=== PATIENT | female | born 1975 | race American Indian/Alaskan Native ===

== ENCOUNTER 2017-09-01 16:50 | Inpatient (IN) ==
[2017-09-01] MEDS ORDERED: IOPAMIDOL 100 ML BOTTLE IV ONE (16:51)
[2017-09-01] MEDS ORDERED: 0.9 % SODIUM CHLORIDE 1,000 ML IV ONE (16:57)
[2017-09-01 17:54] LABS: Basophils # (Auto) 0 K/mcL (0.0-0.3); Basophils % (Auto) 0.2 % (0.0-2.0); Eosinophils # (Auto) 0 K/mcL (0.0-0.7); Eosinophils % (Auto) 0.3 % (0.0-7.0); Granulocytes % (Auto) 83.5 % (38.0-78.0); Lymphocytes # (Auto) 1.4 K/mcL (1.5-4.8); Lymphocytes % (Auto) 9.4 % (15.5-49.0); Mean Cell Volume 89.2 fL (80.0-100.0); Mean Corpuscular HGB Conc 33.5 g/dL (31.0-36.0); Mean Corpuscular Hemoglobin 29.9 pg (26.0-34.0); Monocytes % (Auto) 6.6 % (1.0-12.0); Platelet Count 205 K/mcL (140-440); RBC 4.88 M/mcL (4.00-5.20)
[2017-09-01 18:06] LABS: ALT/SGPT 20 U/l (0-40); Albumin 4.5 gm/dL (3.2-5.2); Albumin/Globulin Ratio 1.3 (1.0-2.3); Alkaline Phosphatase 76 U/L (39-117); Blood Urea Nitrogen 12 mg/dl (6-20); C-Reactive Protein 15.9 mg/dl (0.0-0.8)
--- NOTE | 2017-09-01 19:13 | Emergency Department Note ---
Abdominal Pain HPI - General Chief Complaint: Abdominal Pain Stated Complaint: Abd/back pain Time Seen by Provider: 09/01/17 16:56 Source: patient Mode of arrival: ambulatory Limitations: no limitations - History of Present Illness HPI Narrative: The patient is a pleasant 42 year old here today for evaluation of LLQ pain. States that for the pas week not feeling well with chills, sore throat and a productive cough. Two days ago developed left lower back pain that subsided but then today she had acute LLQ pain. Went to the [facility] care who documented a temp of 100.6F and reported that he patient is acutely tender - they sent her here for further work up/evaluation. She reports a history of hypertension but is otherwise healthy. Endorsing abdominal pain. MD Complaint: abdominal pain Onset (ago): day(s) (2) Location: LLQ Severity: severe Severity scale (1-10): 10 Quality: stabbing Radiation: L flank, back Associated symptoms: Reports: chills - Related Data Home Medications Medication Instructions Recorded Confirmed No Known Home Meds [No Known Home 09/01/17 09/01/17 Meds] Allergies Allergy/AdvReac Type Severity Reaction Status Date / Time No Known Drug Allergies Allergy Verified 09/01/17 16:51 Review of Systems All systems ED: reviewed and negative except as stated. Abdominal Pain PMH - Past Medical History Attestation: Yes: The following information was validated with the patient. Medical history: Reports: hypertension - Social History Smoking status: Never smoker Physical Exam Limitations: no limitations General appearance: alert, in distress (appears to be in pain) Head: atraumatic, normocephalic Eye: Present: normal appearance ENT: normal exam Chest: Present: normal inspection Respiratory: Present: normal lung sounds bilaterally Cardiovascular: Present: regular rate, normal rhythm Abdominal: Present: soft, tenderness, guarding Abdominal tenderness: Present: LUQ (back), LLQ Extremities: Present: normal inspection Back: Present: normal inspection Neurological: Present: alert, oriented X3 Psychiatric: Present: normal affect, normal mood Skin: Present: warm, dry Course Vital Signs Temperature 98.2 F 09/01/17 16:51 Pulse Rate 87 09/01/17 16:51 Respiratory Rate 16 09/01/17 16:51 Blood Pressure 189/104 09/01/17 16:51 Pulse Oximetry (%) 98 09/01/17 16:51 Temperature 98.2 F 09/01/17 16:51 Pulse Rate 72 09/01/17 19:47 Respiratory Rate 16 09/01/17 16:51 Blood Pressure 168/68 09/01/17 19:47 Pulse Oximetry (%) 97 09/01/17 19:47 Abdominal Pain - MDM Narrative Medical decision making narrative: Patient presents with a 2 day history of left lower quadrant pain. Lab work was obtained which shows a WBC of 14, CRP of [address] abdomen/pelvis demonstrating a perforated diverticulitis of the mid desending color with a 10 cm length tract of fluid and air extending. Surgery was called to emergently evaluate. Dr. Marcus evaluated patient and decided to admit with IV antibiotics rather than go to surgery. He is assuming care of the patient. - Lab Data Lab results reviewed: Yes I reviewed the patient's lab results. Result diagrams: 09/01/17 17:14 09/01/17 17:14 Lab Results 09/01/17 09/01/17 Range/Units 17:14 17:14 WBC 14.4 H (4.5-11.0) K/mcL RBC 4.88 (4.00-5.20) M/mcL Hgb 14.6 (12.0-15.0) g/dL Hct 43.5 (36.0-48.0) % MCV 89.2 (80.0-100.0) fL MCH 29.9 (26.0-34.0) pg MCHC 33.5 (31.0-36.0) g/dL RDW 14.0 (11.5-14.5) % Plt Count 205 (140-440) K/mcL MPV 9.1 (7.4-10.4) fL Gran % 83.5 H (38.0-78.0) % Lymph % (Auto) 9.4 L (15.5-49.0) % Rusk % (Auto) 6.6 (1.0-12.0) % Eos % (Auto) 0.3 (0.0-7.0) % Baso % (Auto) 0.2 (0.0-2.0) % Gran # 12.1 H (1.8-8.0) K/mcL Lymph # (Auto) 1.4 L (1.5-4.8) K/mcL Rusk # (Auto) 1.0 H (0.1-0.9) K/mcL Eos # (Auto) 0 (0.0-0.7) K/mcL Baso # (Auto) 0 (0.0-0.3) K/mcL Sodium 134 (133-145) mmol/L Potassium 3.9 (3.3-5.1) mmol/L Chloride 94 L (96-108) mmol/L Carbon Dioxide 26 (22-30) mmol/L Anion Gap 14.0 (8-16) BUN 12 (6-20) mg/dl Creatinine 0.7 (0.6-1.1) mg/dl GFR Calculation 107 Glucose 107 H (70-105) mg/dL Calcium 9.1 (8.6-10.4) mg/dl Total Bilirubin 0.9 (0.0-1.0) mg/dL AST 21 (0-37) U/l ALT 20 (0-40) U/l Alkaline Phosphatase 76 (39-117) U/L C-Reactive Protein 15.9 H (0.0-0.8) mg/dl Total Protein 8.1 (5.9-8.4) gm/dL Albumin 4.5 (3.2-5.2) gm/dL Globulin 3.6 (2.2-3.7) gm/dL Albumin/Globulin Ratio 1.3 (1.0-2.3) Disposition Pt seen by DINKEY BRAKEMAN/PA only: No Clinical Impression: Diverticulitis of colon with perforation Disposition: Xfer As Inpt ([facility]) Referrals: No,PCP [Primary Care Provider] -
[2017-09-01] MEDS ORDERED: ONDANSETRON 4 MG/2 ML VIAL IV PRN (20:17)
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
[2017-09-01] MEDS: DEXTROSE 5%-LR W/20MEQ KCL 1,000 ML IV SCH (22:00)
[2017-09-01] MEDS: 0.9 % SODIUM CHLORIDE 10 ML SYRINGE IV SCH (23:38)
[2017-09-01] MEDS: HEPARIN 5,000 UNIT/ML VIAL SQ SCH (23:40)
[2017-09-01] MEDS: PIPERACILLIN SODIUM/TAZOBACTAM 3.375 GM in DEXTROSE 5% IN WATER 50 ML IV SCH (23:41)
[2017-09-02] MEDS: ACETAMINOPHEN 325 MG TABLET PO PRN ×2 (00:01→18:47)
[2017-09-02] MEDS: PIPERACILLIN SODIUM/TAZOBACTAM 3.375 GM in DEXTROSE 5% IN WATER 50 ML IV SCH ×4 (03:59→21:34)
[2017-09-02] MEDS: DEXTROSE 5%-LR W/20MEQ KCL 1,000 ML IV SCH ×3 (05:25→20:01)
[2017-09-02 05:49] LABS: Mean Cell Volume 89.4 fL (80.0-100.0); Mean Corpuscular HGB Conc 33.9 g/dL (31.0-36.0); Mean Corpuscular Hemoglobin 30.3 pg (26.0-34.0); Platelet Count 176 K/mcL (140-440); RBC 4.38 M/mcL (4.00-5.20)
[2017-09-02] MEDS: 0.9 % SODIUM CHLORIDE 10 ML SYRINGE IV SCH ×4 (06:01→22:16)
[2017-09-02 06:09] LABS: Blood Urea Nitrogen 7 mg/dl (6-20)
[2017-09-02 06:57] LABS: Band Neutrophils % 23 % (0-10); Eosinophils % (Manual) 1 % (0-7); Lymphocytes % 10 % (15-49); Monocytes % (Manual) 4 % (1-12); Platelet Estimate NORMAL (NORMAL); RBC Morphology NORMAL (NORMAL); Segmented Neutrophils % 57 % (38-78)
[2017-09-02] MEDS: PANTOPRAZOLE 40 MG TABLET PO SCH (07:17)
--- NOTE | 2017-09-02 08:10 | Cat Scan Report ---
CLINICAL INFORMATION: Left lower quadrant pain COMPARISON: None. TECHNIQUE: Following enteric contrast, 80 cc of Isovue-300 were injected intravenously, and 60 seconds later, 0.625 mm helical slices were obtained from the mid heart through the subtrochanteric regions. Following reconstruction, 2.5 mm sagittal, coronal and axial reformatted images were processed and reviewed at bone, lung and soft tissue windows. Five minutes later, 0.625 mm helical slices were obtained from the mid heart through the kidneys and viewed at soft tissue windows.The exam was performed using radiation dose optimization techniques including, but not limited to, automated exposure control, adjustment of the mA and/or kV according to patient size and use of iterative reconstruction technique. FINDINGS: Lung bases show no abnormality - no effusion. Visualized heart is normal. Images through the abdomen show the gallbladder and bile ducts, liver, both kidneys, adrenal glands, spleen, pancreas and aorta, including aortic branches, are normal in size, configuration and attenuation without focal lesion. Images through the pelvis show uterus is anteflexed and normal in size - 7.2 x 2.9 cm. Both ovaries urinary bladder unremarkable. There is diverticulitis in a 7 cm segment of the mid descending colon. In this region, there is mild wall thickening of the colon including inflammatory diverticuli with moderate phlegmon in the pericolonic fat. In addition, there is extracolonic gas extensively throughout the left retroperitoneum including the left pericolonic region with dissection superiorly and medially along the anterior pararenal space and through Gerota's fascia into the left perinephric space. The gas dissection continues superiorly to surround the left adrenal gland and into the retrogastric region. There is marked laxity of the right anterior abdominal wall with complete atrophy of the abdominal wall musculature. This allowed protrusion of the mesenteric contents include small bowel and right colon There is a 4.2 cm hernia in the right lateral abdominal wall containing a small loop nonincarcerated small bowel. It does not result in small bowel obstruction. The stomach, small bowel and remainder of the colon are otherwise normal. There is no adenopathy. Bone windows show degenerative changes in lumbar spine, but no focal osseous lesions IMPRESSION: 1. Focal diverticulitis involving a 7 cm segment of the mid descending colon. There is moderate phlegmon surrounding this region. A perforation from an inflamed diverticulum has allowed colonic gas extravasation into the left retroperitoneum with extensive dissection throughout the left pericolonic, anterior paranephric space with perforation through Gerota's fascia into the perinephric space. Gas continues superiorly into the left periadrenal and retrogastric region. 2. Marked atrophy of the right anterior abdominal wall muscular result in laxity allowing protuberance of the mesenteric contents including the right colon and small bowel. Within this lax abdominal wall, there is a small (4 cm) hernia containing a small segment of nonincarcerated appearing small bowel. Interpreted and Authenticated by: Ariel Frazier 09/02/17
--- NOTE | 2017-09-02 08:46 | General Surgery Progress Note ---
Subjective Patient reports: no new complaints, feels better (A little less pain - still more lateral abdomen than LLQ), still having pain, pain is less, tolerating liquids well, no flatus, no bowel movement Narrative: Note initiated : 09/02/17 at 8:44 am Service Date, if different from initiated Date: [] Patient: Marija Casanova 42 y/o F admitted on 09/01/17 for Abd/back pain. Chief Complaint: [] As expected - has had some fevers overnight. Blood cultures done. Voiding well. No BM or flatus. Lengthy discussion again with her, Mom & Aunt over her condition & plans. No thigh pain. NO pain on flexion of L thigh. No swelling in neck. Still with mild URI cough unchanged. She notes upon further questioning she started with back pain actually 1 full week prior to presentation. Pertinent ROS: No dysphagia No chest pains, SOB. Did get on some O2 due to SVO2 84 while resting. NO tachy, palpitations No nausea vomiting Feels a bit warm No dysuria or hematuria No pain in LE Objective Temp Pulse Resp BP Pulse Ox 97.0 F 85 20 124/73 94 09/02/17 07:45 09/02/17 07:57 09/02/17 07:57 09/02/17 07:45 09/02/17 07:57 - Additional Data Intake & Output - Last 24 hours: Intake & Output 08/31/17 09/01/17 09/02/17 09/03/17 05:59 05:59 05:59 05:59 Intake Total 3180 / 3180 Balance 3180 / 3180 Weight 254 lb - General physical appearance well developed, well nourished, no distress, obese - ENT normal mucosa - Neck no masses, no bruits, trachea midline, no lymphadectomy, no venous distension, other (no crepitus) - Respiratory normal expansion, normal respiratory effort, clear to percussion, clear to auscultation - Cardiovascular Cardiovascular exam: Present: normal rate and rhythm - Abdomen soft, tender (mildly in lateral L side - less so than last night. no guarding. no percussion tenderness. no peritonitis. no CVAT), bowel sounds, surgical scars - Neurologic normal coordination, normal sensation - Musculoskeletal other (flexes L thigh to 90 degrees with no pain) - Psychiatric oriented to time, oriented to person, oriented to place, speech is normal, memory intact - Labs 09/02/17 03:30 09/02/17 03:30 Diabetes panel 09/01/17 09/02/17 Range/Units 17:14 03:30 Sodium 134 137 (133-145) mmol/L Potassium 3.9 3.5 (3.3-5.1) mmol/L Chloride 94 L 99 (96-108) mmol/L Carbon Dioxide 26 25 (22-30) mmol/L BUN 12 7 (6-20) mg/dl Creatinine 0.7 0.7 (0.6-1.1) mg/dl Glucose 107 H 101 (70-105) mg/dL Calcium 9.1 8.2 L (8.6-10.4) mg/dl AST 21 (0-37) U/l ALT 20 (0-40) U/l Alkaline Phosphatase 76 (39-117) U/L Total Protein 8.1 (5.9-8.4) gm/dL Albumin 4.5 (3.2-5.2) gm/dL Calcium panel 09/01/17 09/02/17 Range/Units 17:14 03:30 Calcium 9.1 8.2 L (8.6-10.4) mg/dl Albumin 4.5 (3.2-5.2) gm/dL Pituitary panel 09/01/17 09/02/17 Range/Units 17:14 03:30 Sodium 134 137 (133-145) mmol/L Potassium 3.9 3.5 (3.3-5.1) mmol/L Chloride 94 L 99 (96-108) mmol/L Carbon Dioxide 26 25 (22-30) mmol/L BUN 12 7 (6-20) mg/dl Creatinine 0.7 0.7 (0.6-1.1) mg/dl Glucose 107 H 101 (70-105) mg/dL Calcium 9.1 8.2 L (8.6-10.4) mg/dl Adrenal panel 09/01/17 09/02/17 Range/Units 17:14 03:30 Sodium 134 137 (133-145) mmol/L Potassium 3.9 3.5 (3.3-5.1) mmol/L Chloride 94 L 99 (96-108) mmol/L Carbon Dioxide 26 25 (22-30) mmol/L BUN 12 7 (6-20) mg/dl Creatinine 0.7 0.7 (0.6-1.1) mg/dl Glucose 107 H 101 (70-105) mg/dL Calcium 9.1 8.2 L (8.6-10.4) mg/dl Total Bilirubin 0.9 (0.0-1.0) mg/dL AST 21 (0-37) U/l ALT 20 (0-40) U/l Alkaline Phosphatase 76 (39-117) U/L Total Protein 8.1 (5.9-8.4) gm/dL Albumin 4.5 (3.2-5.2) gm/dL Assessment and Plan (1) Diverticulitis of intestine, part unspecified, with perforation and abscess without bleeding Status: Acute Assessment and plan: Doing as expected with fevers overnight. Exam on abdomen is improved. NO evidence extension on psoas inferiorly. WBC down PLAN: Continue Zosyn Continue Ice chips only On Heparin VTE due to obesity & retroperitoneal infection Up & OOB walking Will repeat CT chest/abd/pelvis WITHOUT contrast in am to check on air Repeat labs in AM May consider liquids tomorrow if better As previously discussed may need CT directed drainage if she develops a localized retroperitoneal abscess. 45 minutes spent with her & doing orders, etc. Current Visit: Yes (2) Obesity Status: Chronic Current Visit: Yes - Time Spent With Patient Total time spent is greater than 50% in coordination of care (as documented) at patient's floor/unit and/or counseling patient: Greater than 35 minutes
[2017-09-02] MEDS: HEPARIN 5,000 UNIT/ML VIAL SQ SCH ×2 (09:53→21:33)
[2017-09-03] MEDS: PIPERACILLIN SODIUM/TAZOBACTAM 3.375 GM in DEXTROSE 5% IN WATER 50 ML IV SCH ×4 (03:39→21:50)
[2017-09-03] MEDS: 0.9 % SODIUM CHLORIDE 10 ML SYRINGE IV SCH ×4 (03:40→22:30)
[2017-09-03] MEDS: DEXTROSE 5%-LR W/20MEQ KCL 1,000 ML IV SCH ×4 (03:44→16:22)
[2017-09-03 05:33] LABS: Basophils # (Auto) 0 K/mcL (0.0-0.3); Basophils % (Auto) 0 % (0.0-2.0); Eosinophils # (Auto) 0.4 K/mcL (0.0-0.7); Eosinophils % (Auto) 2.6 % (0.0-7.0); Granulocytes % (Auto) 82.3 % (38.0-78.0); Lymphocytes # (Auto) 1.3 K/mcL (1.5-4.8); Mean Corpuscular HGB Conc 33.6 g/dL (31.0-36.0); Mean Corpuscular Hemoglobin 30.3 pg (26.0-34.0); Monocytes # (Auto) 0.9 K/mcL (0.1-0.9); Monocytes % (Auto) 6.1 % (1.0-12.0); Platelet Count 154 K/mcL (140-440); RBC 4.06 M/mcL (4.00-5.20); Red Cell Distribution Width 13.9 % (11.5-14.5)
[2017-09-03 05:47] LABS: Blood Urea Nitrogen 7 mg/dl (6-20)
[2017-09-03] MEDS: PANTOPRAZOLE 40 MG TABLET PO SCH (07:54)
[2017-09-03] MEDS: ACETAMINOPHEN 325 MG TABLET PO PRN (08:03)
--- NOTE | 2017-09-03 09:43 | Internal Med Progress Note ---
Medical - PN: Subj Patient information: Note initiated : 09/03/17 at 9:41 am Service Date, if different from initiated Date: [] Patient: Marija Casanova 42 y/o F admitted on 09/01/17 for Abd/back pain. Chief Complaint: [] Interval history: Feels better last 24 hours - no N V. Still has fevers - Tm 101.7. No chills. Says pain in abdomen completely gone, just "uncomfortable" in back now - mainly with motion. No problems flexing L leg. Voiding well. No BM yet. She is hungry. She is having BM's. Pertinent ROS: No neck pain. Still with cough - slight clear production No chest pains, leg pains edema No N V. No dysuria or hematuria. - Constitutional Vitals: Vital Signs Temp Pulse Resp BP Pulse Ox 99.2 F H 74 16 122/76 95 09/03/17 04:00 09/03/17 04:00 09/03/17 04:00 09/03/17 04:00 09/03/17 04:00 Period Temp Pulse Resp BP Sys/Lopez Pulse Ox Last 24 Hr 97.8 F-101.7 F 74-80 16-24 122-142/64-79 90-95 Intake and Output 09/02/17 09/03/17 09/03/17 21:59 05:59 13:59 Intake Total 1330 / 1330 1425 / 1425 Balance 1330 / 1330 1425 / 1425 Weight 254 lb 11.2 oz Intake & Output: Intake & Output 09/02/17 09/03/17 09/03/17 21:59 05:59 13:59 Intake Total 1330 / 1330 1425 / 1425 Balance 1330 / 1330 1425 / 1425 Weight 254 lb 11.2 oz Intake: IV 1050 / 1050 1065 / 1065 Dextrose 5%-Lr W/20Meq KCl 1, 1000 / 1000 965 / 965 000 ml @ 125 mls/hr IV .Q8H [facility] Rx#:[id number] Zosyn 3.375 gm In Dextrose 5% 50 / 50 100 / 100 in Water 50 ml @ 100 mls/hr IV Q6H [facility] Rx#:[id number] Oral 280 / 280 360 / 360 Other: Stool Size Small # Voids 1 4 # Bowel Movements 1 General appearance: obese - ENT ENT exam: Present: mucous membranes moist, normal external ear exam - Respiratory Respiratory exam: Present: normal respiratory exam - Cardiovascular Cardiovascular exam: Present: normal rate and rhythm - GI/Abdominal GI/Abdominal exam: Present: normal bowel sounds, soft, hernia (same on R side of abdomen - reducible), tenderness (not tender in abdomen at all ) - Expanded Abdominal Exam GI/Abdominal exam: Absent: heel tap sign, obturator sign, psoas sign, Rovsing's sign - Back Exam Back exam: Present: CVA tenderness (L). Absent: CVA tenderness (R) Medical - PN: Obj Da - Labs CBC & Chem 7: 09/03/17 04:10 09/03/17 04:10 Labs: Abnormal Lab Results 09/03/17 09/03/17 09/02/17 04:10 04:10 03:30 WBC 14.7 H Gran % 82.3 H Lymph % (Auto) 9.0 L Gran # 12.1 H Lymph # (Auto) 1.3 L Gates # (Auto) Band Neutrophils % Lymphocytes % Reactive Lymphocytes Chloride Glucose 140 H Calcium 8.5 L 8.2 L C-Reactive Protein 09/02/17 09/01/17 09/01/17 03:30 17:14 17:14 WBC 12.0 H 14.4 H Gran % 83.5 H Lymph % (Auto) 9.4 L Gran # 12.1 H Lymph # (Auto) 1.4 L Gates # (Auto) 1.0 H Band Neutrophils % 23 H Lymphocytes % 10 L Reactive Lymphocytes 7 H Chloride 94 L Glucose 107 H Calcium C-Reactive Protein 15.9 H WBC back up today Meds: Medications Acetaminophen (Tylenol) 650 mg PO Q6HP PRN PRN Reason: PAIN/FEVER > 101 Last Admin: 09/03/17 08:03 Dose: 650 mg Heparin Sodium (Porcine) (Heparin) 5,000 unit SQ Q12 [facility] Last Admin: 09/02/17 21:33 Dose: 5,000 unit Piperacillin Sod/Tazobactam (Sod 3.375 gm/ Dextrose) 50 mls @ 100 mls/hr IV Q6H [facility] Last Infusion: 09/03/17 04:09 Dose: Infused Potassium Cl/Dextrose/Lact Ringer's (Dextrose 5%-Lr W/20meq Kcl) 1,000 mls @ 50 mls/hr IV .Q20H [facility] Morphine Sulfate (Morphine Sucker Machine Operator) 30 mg IV UD PRN; Protocol PRN Reason: Pain Last Admin: 09/03/17 01:51 Dose: 30 mg Morphine Sulfate (Morphine) 5 - 10 mg IV Q2HP PRN PRN Reason: PAIN LEVEL > 6 Last Admin: 09/02/17 07:44 Dose: 5 mg Ondansetron HCl (Zofran) 4 mg IV Q6HP PRN PRN Reason: Nausea And Vomiting Last Admin: 09/01/17 23:34 Dose: 4 mg Pantoprazole Sodium (Protonix) 40 mg PO QAMAC [facility] Last Admin: 09/03/17 07:54 Dose: 40 mg Sodium Chloride (Saline Flush) 10 ml IV Q8 [facility] Last Admin: 09/03/17 04:23 Dose: 10 ml - Imaging and cardiology CT scan - abdomen Status: image reviewed by me (discussed with radiology - clearly no leak now with contrast in L colon. Gas seems to be more scattered & slightly less to me. No collections of fluid consistent with an abscess. Dr. Pearl concprecious. ) Medical - PN: A/P - Time Spent With Patient Total time spent is greater than 50% in coordination of care (as documented) at patient's floor/unit and/or counseling patient: 25 - 35 minutes (1) Diverticulitis of intestine, part unspecified, with perforation and abscess without bleeding Status: Acute Assessment and plan: Certainly would like to see WBC and fevers gone - but clinically she is better with no abdominal pain or tenderness now. And CT scan suggests some slight diminution of air and no abscess - along with reassurance that there is no contrast leakage documented with contrast in the area of the colon that appears to have perforated. She is on appropriate antibiotics Will begin clear liquids - continue IV RADIAL ARM SAW OPERATOR for today. Will repeat labs including another CRP in AM. She likely will need on-going CT scans - doing without IV contrast is giving us the information we need. Still at risk to form an abscess. No evidence of any necrotizing infection on the psoas - no extention of the air/ inflammation beyond the original boundaries either superiorly or inferiorly. I will recheck her again early in AM and then pass her care on to Dr. Tanner. Patient & mother aware of transfer of care and all of the above stated concerns. She remains on Heparin VTE BID Current Visit: Yes (2) Obesity Status: Chronic Current Visit: Yes Medical - PN: Qual - VTE Deep Vein Thrombosis/Pulmonary Embolism Present on Admission: No
[2017-09-03] MEDS: HEPARIN 5,000 UNIT/ML VIAL SQ SCH ×2 (10:23→21:50)
--- NOTE | 2017-09-03 13:01 | Cat Scan Report ---
CLINICAL INFORMATION: Diverticulitis in the mid descending colon which perforated resulting in left retroperitoneal gas accumulation - reevaluate. Fever COMPARISON: Abdomen and pelvic CT from two days prior: 09/01/2017. TECHNIQUE: 2.5 mm helical slices were obtained from the lung apices through the subtrochanteric regions of the femurs. Following reconstruction, 2.5 mm sagittal, coronal and axial reformatted images were processed and reviewed at multiple windows and levels. 7 mm MIP reconstructions were obtained through the lungs to optimize nodule detection.The exam was performed using radiation dose optimization techniques including, but not limited to, automated exposure control, adjustment of the mA and/or kV according to patient size and use of iterative reconstruction technique. FINDINGS: Pulmonary parenchymal windows show small left pleural effusion. There is mild patchy atelectasis in the left lower lobe. No susu pulmonary infiltrates - the remaining lung otherwise clear. Mediastinal windows show the noncontrasted thoracic aorta and pulmonary arteries are normal in contour and caliber. There is no adenopathy in the mediastinal hilar or axillary regions. The noncontrasted heart is grossly normal. Esophagus is unremarkable. Images through the abdomen show the noncontrasted gallbladder and bile ducts, liver, both kidneys, adrenal glands, spleen, pancreas and aorta to be normal in size, configuration and attenuation without focal lesion. Images should the pelvis show uterus, ovaries and urinary bladder to be normal. Enteric contrast, given for the abdominal CT two days ago now completely opacifies the colon. No stomach or small bowel opacification. Focal diverticulitis involving a short segment of the mid descending colon shows continued improvement. None of the enteric contrast extravasated into the pericolonic fat, thus no evidence of active colonic leak. The retroperitoneal gas, in the left paracolic gutter, left anterior pararenal space, surrounding the pancreatic tail and extending superiorly into the the retrogastric and perisplenic regions, shows modest decrease since the study two days prior suggesting partial resolution. Marked laxity and atrophy of the entire right anterior abdominal wall with small 4 cm hernia containing a small segment nonincarcerated small bowel seen as before. Bone windows show no focal osseous abnormalities of the chest, abdomen or pelvis IMPRESSION: 1. Improvement in diverticulitis involving a short segment of the mid descending colon. There is no evidence of active colonic extravasation on today's study. Left-sided retroperitoneal gas, seen on previous study, has partially resolved. 2. Small left pleural effusion and mild atelectasis in the left lung base. Chest is otherwise normal 3. Marked atrophy of the right anterior abdominal wall muscular resulting in abdominal wall laxity. A 4 cm hernia containing a short segment of small bowel unchanged. Interpreted and Authenticated by: rAiel Frazier 09/03/17
[2017-09-04] MEDS: PIPERACILLIN SODIUM/TAZOBACTAM 3.375 GM in DEXTROSE 5% IN WATER 50 ML IV SCH ×3 (04:07→17:54)
[2017-09-04] MEDS: 0.9 % SODIUM CHLORIDE 10 ML SYRINGE IV SCH ×3 (04:42→21:32)
[2017-09-04] MEDS: DEXTROSE 5%-LR W/20MEQ KCL 1,000 ML IV SCH ×4 (04:43→16:49)
[2017-09-04 05:44] LABS: Basophils # (Auto) 0 K/mcL (0.0-0.3); Basophils % (Auto) 0.2 % (0.0-2.0); Eosinophils # (Auto) 0.5 K/mcL (0.0-0.7); Eosinophils % (Auto) 3.4 % (0.0-7.0); Granulocytes % (Auto) 77.1 % (38.0-78.0); Ionized Calcium 1.09 mmol/L (1.16-1.32); Lymphocytes % (Auto) 14.6 % (15.5-49.0); Mean Cell Volume 90.5 fL (80.0-100.0); Mean Corpuscular HGB Conc 33.3 g/dL (31.0-36.0); Mean Corpuscular Hemoglobin 30.2 pg (26.0-34.0); Monocytes # (Auto) 0.7 K/mcL (0.1-0.9); Monocytes % (Auto) 4.7 % (1.0-12.0); Platelet Count 174 K/mcL (140-440); RBC 4.19 M/mcL (4.00-5.20); Red Cell Distribution Width 13.8 % (11.5-14.5)
[2017-09-04 05:55] LABS: Blood Urea Nitrogen 6 mg/dl (6-20)
--- NOTE | 2017-09-04 06:04 | Internal Med Progress Note ---
Medical - PN: Subj Patient information: Note initiated : 09/04/17 at 6:02 am Service Date, if different from initiated Date: [] Patient: Marija Casanova 42 y/o F admitted on 09/01/17 for Abd/back pain. Chief Complaint: [] HD 4 for retroperitoneal perforation of diverticulitis. Burke a little more pain overnight in L flank. No abdominal pain at all. Some of the juices seemed to upset her stomach - but no N V. Tmax < 100 last 24 hours. WBC down to 14k from yesterday. No new complaints. Still having liquid BM's. Pertinent ROS: No fevers chills no chest pains, sob. Mild productive cough unchanged No abdominal pain No dysuria hematuria no pain on flexion of thighs still mainly pain L back - Constitutional Vitals: Vital Signs Temp Pulse Resp BP Pulse Ox 97.1 F 64 18 158/82 97 09/04/17 04:00 09/04/17 04:00 09/04/17 04:00 09/04/17 04:00 09/04/17 04:00 Period Temp Pulse Resp BP Sys/Lopez Pulse Ox Last 24 Hr 96.7 F-99.6 F 64-76 14-22 138-158/75-92 95-98 Intake and Output 09/03/17 09/04/17 09/04/17 21:59 05:59 13:59 Intake Total 949 / 949 675 / 675 Balance 949 / 949 675 / 675 Weight 257 lb 11.2 oz Intake & Output: Intake & Output 09/03/17 09/04/17 09/04/17 21:59 05:59 13:59 Intake Total 949 / 949 675 / 675 Balance 949 / 949 675 / 675 Weight 257 lb 11.2 oz Intake: IV 219 / 219 50 / 50 Zosyn 3.375 gm In Dextrose 5% 50 / 50 50 / 50 in Water 50 ml @ 100 mls/hr IV Q6H [facility] Rx#:[id number] Oral 730 / 730 625 / 625 Other: Meal Broth, popsicle Percent of Meal Consumed 100% Feeding Ability Independent # Voids 1 1 General appearance: obese - ENT ENT exam: Present: mucous membranes moist - Neck Neck exam: Present: full ROM, normal inspection (no crepitus) - Respiratory Respiratory exam: Present: normal respiratory exam - Cardiovascular Cardiovascular exam: Present: normal rate and rhythm - GI/Abdominal GI/Abdominal exam: Present: normal bowel sounds, soft (no tenderness. no guarding. no peritonitis) - Back Exam Back exam: Present: CVA tenderness (L) (same as yesterday) Medical - PN: Obj Da - Labs CBC & Chem 7: 09/04/17 04:35 09/04/17 04:35 Labs: Abnormal Lab Results 09/04/17 09/04/17 09/04/17 04:35 04:35 04:35 WBC 14.0 H Gran % Lymph % (Auto) 14.6 L Gran # 10.8 H Lymph # (Auto) [place] # (Auto) Band Neutrophils % Lymphocytes % Reactive Lymphocytes Chloride Glucose Calcium Ionized Calcium Mart 1.09 L C-Reactive Protein 27.7 H 09/03/17 09/03/17 09/02/17 04:10 04:10 03:30 WBC 14.7 H Gran % 82.3 H Lymph % (Auto) 9.0 L Gran # 12.1 H Lymph # (Auto) 1.3 L [place] # (Auto) Band Neutrophils % Lymphocytes % Reactive Lymphocytes Chloride Glucose 140 H Calcium 8.5 L 8.2 L Ionized Calcium Mart C-Reactive Protein 09/02/17 09/01/17 09/01/17 03:30 17:14 17:14 WBC 12.0 H 14.4 H Gran % 83.5 H Lymph % (Auto) 9.4 L Gran # 12.1 H Lymph # (Auto) 1.4 L [place] # (Auto) 1.0 H Band Neutrophils % 23 H Lymphocytes % 10 L Reactive Lymphocytes 7 H Chloride 94 L Glucose 107 H Calcium Ionized Calcium Mart C-Reactive Protein 15.9 H Meds: Medications Acetaminophen (Tylenol) 650 mg PO Q6HP PRN PRN Reason: PAIN/FEVER > 101 Last Admin: 09/03/17 08:03 Dose: 650 mg Heparin Sodium (Porcine) (Heparin) 5,000 unit SQ Q12 [facility] Last Admin: 09/03/17 21:50 Dose: 5,000 unit Piperacillin Sod/Tazobactam (Sod 3.375 gm/ Dextrose) 50 mls @ 100 mls/hr IV Q6H LIGIA Last Admin: 09/04/17 04:07 Dose: 100 mls/hr Potassium Cl/Dextrose/Lact Ringer's (Dextrose 5%-Lr W/20meq Kcl) 1,000 mls @ 50 mls/hr IV .Q20H [facility] Last Admin: 09/04/17 04:43 Dose: Not Given Morphine Sulfate (Morphine Data Processing Operator) 30 mg IV UD PRN; Protocol PRN Reason: Pain Last Admin: 09/03/17 23:53 Dose: 30 mg Morphine Sulfate (Morphine) 5 - 10 mg IV Q2HP PRN PRN Reason: PAIN LEVEL > 6 Last Admin: 09/02/17 07:44 Dose: 5 mg Ondansetron HCl (Zofran) 4 mg IV Q6HP PRN PRN Reason: Nausea And Vomiting Last Admin: 09/01/17 23:34 Dose: 4 mg Pantoprazole Sodium (Protonix) 40 mg PO QAMAC [facility] Last Admin: 09/03/17 07:54 Dose: 40 mg Sodium Chloride (Saline Flush) 10 ml IV Q8 [facility] Last Admin: 09/04/17 04:42 Dose: 10 ml Medical - PN: A/P - Time Spent With Patient Total time spent is greater than 50% in coordination of care (as documented) at patient's floor/unit and/or counseling patient: 25 - 35 minutes (1) Diverticulitis of intestine, part unspecified, with perforation and abscess without bleeding Status: Acute Assessment and plan: No fever x 24 hours which is improvement WBC down a little which is better Taking clear liquids fairly well. Only lab pending is CMP PLAN: Continue liquids & IV Zosyn Will sign out to DR. Tanner At this point she seems to making slow improvement - still has chance of needing exploration for this retroperitoneal contamination - at this point if it was necessary MIGHT be approachable through retroperitoneum to avoid contaminating peritoneal space & the 2 pieces of mesh she has there. Might consider repeating CT scan tomorrow to check on status of air. Current Visit: Yes (2) Obesity Status: Chronic Current Visit: Yes Medical - PN: Qual - VTE Deep Vein Thrombosis/Pulmonary Embolism Present on Admission: No
[2017-09-04] MEDS: PANTOPRAZOLE 40 MG TABLET PO SCH (07:51)
--- NOTE | 2017-09-04 08:41 | General Surgery Progress Note ---
Surgical - Auxillary Note - Subjective Patient Information: Note initiated : 09/04/17 at 8:34 am Service Date, if different from initiated Date: [] Patient: Marija Casanova 42 y/o F admitted on 09/01/17 for Abd/back pain. Chief Complaint: [] Patient sitting up in bed. Has been taking in clear liquids. Had some "upset stomach" with juice yesterday. Pain currently 4/10 with use of Morphine BENEFITS OFFICER. Coughing--thinks her cold is clearing. Vital Signs Temp Pulse Resp BP Pulse Ox 97.6 F 64 16 155/80 96 09/04/17 07:37 09/04/17 04:00 09/04/17 08:00 09/04/17 07:37 09/04/17 07:37 Period Temp Pulse Resp BP Sys/Lopez Pulse Ox Last 24 Hr 96.8 F-99.6 F 64-76 14-20 146-158/75-92 95-98 Intake and Output 09/03/17 09/04/17 09/04/17 21:59 05:59 13:59 Intake Total 949 / 949 675 / 675 Balance 949 / 949 675 / 675 Weight 257 lb 11.2 oz PE: Alert and oriented. No distress Chest: cough, No rales or wheezes. Lung herman clear. CV: regular rhythm ABD: obese, soft, no rigidity. Some rebound tenderness into left flank with palpation of right abdomen. No left sided tenderness. EXT: warm, DP pulses easily palpabe R>L (due to surgical scarring on left foot) . Cap refill <2sec. No edema. CBC and Chem 7 09/04/17 04:35 09/04/17 04:35 A/P: Perforated diverticulitis in descending colon: contained into retroperitoneum. No contrast extravasation or fluid collection. WBCs increased today. Will hold on P.O. intake for now. This was discussed with patient Will also adjust BENEFITS OFFICER.
[2017-09-04] MEDS: PANTOPRAZOLE 40 MG VIAL IV SCH (09:20)
[2017-09-04] MEDS: ACETAMINOPHEN 1,000 MG/100 ML BOTTLE IV PRN (09:46)
[2017-09-04] MEDS: HEPARIN 5,000 UNIT/ML VIAL SQ SCH ×2 (09:47→21:25)
[2017-09-04] MEDS: metroNIDAZOLE 500 MG/100 ML BAG IV SCH ×3 (11:30→21:25)
[2017-09-05] MEDS: PIPERACILLIN SODIUM/TAZOBACTAM 3.375 GM in DEXTROSE 5% IN WATER 50 ML IV SCH ×5 (00:48→23:35)
[2017-09-05] MEDS: ACETAMINOPHEN 1,000 MG/100 ML BOTTLE IV PRN ×2 (01:02→18:45)
[2017-09-05] MEDS: DEXTROSE 5%-LR W/20MEQ KCL 1,000 ML IV SCH ×3 (01:02→17:11)
[2017-09-05] MEDS: metroNIDAZOLE 500 MG/100 ML BAG IV SCH ×3 (04:52→21:41)
[2017-09-05] MEDS: 0.9 % SODIUM CHLORIDE 10 ML SYRINGE IV SCH ×3 (05:19→21:14)
[2017-09-05 06:47] LABS: Basophils # (Auto) 0 K/mcL (0.0-0.3); Basophils % (Auto) 0.3 % (0.0-2.0); Eosinophils # (Auto) 0.4 K/mcL (0.0-0.7); Eosinophils % (Auto) 3.5 % (0.0-7.0); Granulocytes % (Auto) 68.3 % (38.0-78.0); Lymphocytes # (Auto) 1.8 K/mcL (1.5-4.8); Lymphocytes % (Auto) 17.8 % (15.5-49.0); Mean Cell Volume 90.2 fL (80.0-100.0); Mean Corpuscular HGB Conc 33.4 g/dL (31.0-36.0); Mean Corpuscular Hemoglobin 30.1 pg (26.0-34.0); Monocytes % (Auto) 10.1 % (1.0-12.0); Platelet Count 185 K/mcL (140-440); RBC 3.88 M/mcL (4.00-5.20); Red Cell Distribution Width 14.2 % (11.5-14.5)
[2017-09-05 07:49] LABS: Ionized Calcium 1.08 mmol/L (1.16-1.32)
[2017-09-05 08:00] LABS: Blood Urea Nitrogen 7 mg/dl (6-20)
--- NOTE | 2017-09-05 08:58 | General Surgery Progress Note ---
Surgical - Auxillary Note - Subjective Patient Information: Note initiated : 09/05/17 at 8:47 am Service Date, if different from initiated Date: [] Patient: Marija Casanova 42 y/o F admitted on 09/01/17 for Diverticulitis of Colon with Perforation. Chief Complaint: [] Patient sitting up in bed. Feels better. Pain in flank less. Was aggravated by coughing previously but not so now. Still with cough. No fevers or chills. Passed some diarrhea. Has been NPO since yesterday. Vital Signs Temp Pulse Resp BP Pulse Ox 97.6 F 64 16 122/84 95 09/05/17 08:00 09/05/17 08:00 09/05/17 08:00 09/05/17 08:00 09/05/17 08:00 Period Temp Pulse Resp BP Sys/Lopez Pulse Ox Last 24 Hr 97.4 F-99.3 F 62-67 16-22 122-160/72-90 95-98 Intake and Output 09/04/17 09/05/17 09/05/17 21:59 05:59 13:59 Intake Total 1050 / 1050 350 / 350 50 / 50 Output Total 500 / 500 300 / 300 Balance 1050 / 1050 -150 / -150 -250 / -250 Weight 256 lb 11.2 oz PE: General: no distress. Chest: clear to auscultation bilaterally--no wheezes. Still with cough. CV: regular rhythm and rate. ABD: soft, non tender. No rebound into left flank on palpation (improved from yesterday). CBC and Chem 7 09/05/17 05:34 09/05/17 05:34 A/P: Perforated diverticulitis--contained. On IV abx. Flagyl added yesterday to Zosyn--will continue both. WBCs improved. Keep NPO x ice chips today. If continues to do well then can start clear liquids tomorrow and then progress to oral meds as tolerated.
[2017-09-05] MEDS: HEPARIN 5,000 UNIT/ML VIAL SQ SCH ×2 (11:27→20:04)
[2017-09-05] MEDS: PANTOPRAZOLE 40 MG VIAL IV SCH (11:29)
[2017-09-06] MEDS: DEXTROSE 5%-LR W/20MEQ KCL 1,000 ML IV SCH ×3 (01:06→09:10)
[2017-09-06] MEDS: ACETAMINOPHEN 1,000 MG/100 ML BOTTLE IV PRN ×2 (01:50→14:16)
[2017-09-06] MEDS: PIPERACILLIN SODIUM/TAZOBACTAM 3.375 GM in DEXTROSE 5% IN WATER 50 ML IV SCH ×4 (05:27→23:50)
[2017-09-06] MEDS: metroNIDAZOLE 500 MG/100 ML BAG IV SCH ×3 (06:01→21:54)
[2017-09-06] MEDS: 0.9 % SODIUM CHLORIDE 10 ML SYRINGE IV SCH ×4 (06:01→21:55)
[2017-09-06 06:56] LABS: Basophils # (Auto) 0 K/mcL (0.0-0.3); Basophils % (Auto) 0.3 % (0.0-2.0); Eosinophils # (Auto) 0.4 K/mcL (0.0-0.7); Eosinophils % (Auto) 4.3 % (0.0-7.0); Granulocytes % (Auto) 59.9 % (38.0-78.0); Lymphocytes # (Auto) 2.2 K/mcL (1.5-4.8); Lymphocytes % (Auto) 25.2 % (15.5-49.0); Mean Cell Volume 89.4 fL (80.0-100.0); Mean Corpuscular HGB Conc 33.5 g/dL (31.0-36.0); Mean Corpuscular Hemoglobin 29.9 pg (26.0-34.0); Monocytes # (Auto) 0.9 K/mcL (0.1-0.9); Monocytes % (Auto) 10.3 % (1.0-12.0); Platelet Count 220 K/mcL (140-440); RBC 4.06 M/mcL (4.00-5.20); Red Cell Distribution Width 14.1 % (11.5-14.5)
--- NOTE | 2017-09-06 07:10 | General Surgery Progress Note ---
Surgical - Auxillary Note - Subjective Patient Information: Note initiated : 09/06/17 at 7:07 am Service Date, if different from initiated Date: [] Patient: Marija Casanova 42 y/o F admitted on 09/01/17 for Diverticulitis of Colon with Perforation. Chief Complaint: [] Patient resting in bed. Feels well. Used COMPUTER NETWORK SPECIALIST overnight primarily to help her sleep; denies pain. Cough a little less. Still not aggravating any pain. No nausea or emesis. Vital Signs Temp Pulse Resp BP Pulse Ox 97.5 F 60 16 164/88 96 09/06/17 04:00 09/06/17 04:00 09/06/17 04:00 09/06/17 04:00 09/06/17 04:00 Period Temp Pulse Resp BP Sys/Lopez Pulse Ox Last 24 Hr 97.5 F-98.5 F 52-68 16-20 122-164/84-102 95-98 Intake and Output 09/05/17 09/06/17 09/06/17 21:59 05:59 13:59 Intake Total 940 / 940 1330 / 1330 50 / 50 Output Total 1200 / 1200 1100 / 1100 Balance -260 / -260 230 / 230 50 / 50 Weight 252 lb 12.8 oz PE: No distress Chest: lungs clear CV: regular rate and rhythm ABD: soft, non tender. CBC and Chem 7 09/06/17 06:00 A/P: Perforated diverticulitis--contained. clinically responding to IV antibiotics and conservative therapy. WBCs remain normal this morning. Will restart clear liquids and if tolerated change to oral antibiotics.
[2017-09-06] MEDS: PANTOPRAZOLE 40 MG VIAL IV SCH (09:10)
[2017-09-06] MEDS: HEPARIN 5,000 UNIT/ML VIAL SQ SCH ×2 (09:10→21:54)
[2017-09-07] MEDS: ACETAMINOPHEN 1,000 MG/100 ML BOTTLE IV PRN (03:11)
[2017-09-07] MEDS: PIPERACILLIN SODIUM/TAZOBACTAM 3.375 GM in DEXTROSE 5% IN WATER 50 ML IV SCH (05:30)
[2017-09-07] MEDS: 0.9 % SODIUM CHLORIDE 10 ML SYRINGE IV SCH ×2 (05:30→15:43)
[2017-09-07] MEDS: metroNIDAZOLE 500 MG/100 ML BAG IV SCH (06:04)
[2017-09-07 06:27] LABS: Basophils # (Auto) 0 K/mcL (0.0-0.3); Basophils % (Auto) 0.3 % (0.0-2.0); Eosinophils # (Auto) 0.2 K/mcL (0.0-0.7); Eosinophils % (Auto) 2.7 % (0.0-7.0); Granulocytes % (Auto) 67.1 % (38.0-78.0); Lymphocytes # (Auto) 1.8 K/mcL (1.5-4.8); Lymphocytes % (Auto) 20.1 % (15.5-49.0); Mean Cell Volume 88.8 fL (80.0-100.0); Mean Corpuscular HGB Conc 33.2 g/dL (31.0-36.0); Mean Corpuscular Hemoglobin 29.5 pg (26.0-34.0); Monocytes # (Auto) 0.9 K/mcL (0.1-0.9); Monocytes % (Auto) 9.8 % (1.0-12.0); Platelet Count 235 K/mcL (140-440); RBC 4.41 M/mcL (4.00-5.20); Red Cell Distribution Width 14.2 % (11.5-14.5)
--- NOTE | 2017-09-07 07:42 | General Surgery Progress Note ---
Surgical - Auxillary Note - Subjective Patient Information: Note initiated : 09/07/17 at 7:35 am Service Date, if different from initiated Date: [] Patient: Marija Casanova 42 y/o F admitted on 09/01/17 for Diverticulitis of Colon with Perforation. Chief Complaint: [] Patient resting in bed. Reports overall feeling better and wanting to go home. Tolerated full liquids last night. No nauea or vomitin or increased abdominal pain. Had one dose of Morphine overnight to help her sleep but denies increased or significant pain. Low grade fever overnight but afebrile this morning. Cough slowly improving. Vital Signs Temp Pulse Resp BP Pulse Ox 97.4 F 60 18 155/88 96 09/07/17 07:25 09/07/17 03:20 09/07/17 03:20 09/07/17 03:20 09/07/17 03:20 Period Temp Pulse Resp BP Sys/Lopez Pulse Ox Last 24 Hr 97.4 F-99.5 F 60-70 14-18 142-170/86-109 95-98 Intake and Output 09/06/17 09/07/17 09/07/17 21:59 05:59 13:59 Intake Total 1290 / 1290 1293 / 1293 50 / 50 Output Total 900 / 900 1600 / 1600 Balance 390 / 390 -307 / -307 50 / 50 Weight 249 lb 8 oz PE: General appearance: No distress. Chest: clear in upper herman. No accessory muscle use. CV: regular rate and rhythm ABD: soft, non tender. No rebound. No back or flank tenderness CBC and Chem 7 09/07/17 05:36 09/05/17 05:34 A/P: Perforated diverticulitis, contained. Clinically improved and tolerating liquids. Will change to p.o. antibiotics Continue on liquid diet for now. Caretaker Grounds to consult for education on an eventual low fiber low residue diet. Possible home later today.
[2017-09-07] MEDS: PANTOPRAZOLE 40 MG VIAL IV SCH (12:35)
[2017-09-07] MEDS: HEPARIN 5,000 UNIT/ML VIAL SQ SCH (12:35)
[2017-09-07] MEDS: AMOXICILLIN/POTASSIUM CLAV 500 MG TABLET PO SCH ×2 (13:46→18:19)
[2017-09-07] MEDS ORDERED: metroNIDAZOLE 500 MG TABLET PO SCH (14:00)
--- NOTE | 2017-09-07 15:46 | Discharge Summary ---
Providers - Providers Patient information: Note initiated : 09/07/17 at 3:44 pm Service Date, if different from initiated Date: [] Patient: Marija Casanova 42 y/o F admitted on 09/01/17 for Diverticulitis of Colon with Perforation. Chief Complaint: [] Date of admission: 09/01/17 Discharge date: 09/07/17 Attending physician: Selena Tanner Hospitalization Hospital course: Patient admitted with abdominal and back pain. Diagnosed with perforated diverticulitis. Started on conservative management and IV abx. Clinically responded to this with improvement also seen on CT scan. WBCs normalized after three days. Started on clear liquids and advanced to full liquids as tolerated. She was then changed to oral antibiotics which are to be continued as an outpatient. Prior to discharge she was counseled on low residue diet by roaster operator in anticipation of advancing diet later on after discharge. Discharged on 09/07/17 with plans for follow up in clinic early next week with repeat CBC. Patient to remain on liquid diet. Discharge diagnosis: diverticulitis with contained perforation Exam Temp Pulse Resp BP Pulse Ox 98.2 F 69 16 165/92 93 09/07/17 12:00 09/07/17 12:00 09/07/17 12:00 09/07/17 12:00 09/07/17 12:00 Discharge Plan - Patient/Caregiver Discharge Instructions Activity: increase activity as tolerated Diet: Clear Liquid, Full Liquid Additional Instructions: no solid food until after follow up visit in clinic. Liquids only. Take antibiotics as prescribed. Call MD or return to ER for increasing abdominal pain, fever, chills, nausea, or vomiting. Prescriptions: Amoxicillin/Potassium Clav [Augmentin] 500 mg PO BIDCC 7 Days #14 tab HYDROcodone/APAP 5/325MG [[employer] 5-325Mg] 1 tab PO Q6HP PRN #15 tablet PRN Reason: Pain metroNIDAZOLE [Flagyl] 500 mg PO Q8 7 Days #21 tab - Follow up Plan Follow up with: No,PCP [Primary Care Provider] - Disposition: Home, Self-Care Prognosis: Good Rehab Potential: Good Overall status at discharge: patient is progressing back to baseline Pending Studies Resuscitation Status Full Code Diet Full Liquid Diet Start MonSep 06 151 Amoxicillin/Clavulanate Potassium (Augmentin) 500 mg PO BIDCC LIGIA Last Admin: 09/07/17 13:46 Dose: 500 mg Heparin Sodium (Porcine) (Heparin) 5,000 unit SQ Q12 [facility] Last Admin: 09/07/17 12:35 Dose: 5,000 unit Admin: 09/06/17 21:54 Dose: 5,000 unit Admin: 09/06/17 09:10 Dose: 5,000 unit Admin: 09/05/17 20:04 Dose: 5,000 unit Admin: 09/05/17 11:27 Dose: 5,000 unit Admin: 09/04/17 21:25 Dose: 5,000 unit Admin: 09/04/17 09:47 Dose: 5,000 unit Admin: 09/03/17 21:50 Dose: 5,000 unit Admin: 09/03/17 10:23 Dose: 5,000 unit Admin: 09/02/17 21:33 Dose: 5,000 unit Admin: 09/02/17 09:53 Dose: 5,000 unit Admin: 09/01/17 23:40 Dose: 5,000 unit Metronidazole (Flagyl) 500 mg PO Q8 [facility] Last Admin: 09/07/17 13:46 Dose: 500 mg Ondansetron HCl (Zofran) 4 mg IV Q6HP PRN PRN Reason: Nausea And Vomiting Last Admin: 09/01/17 23:34 Dose: 4 mg Pantoprazole Sodium (Protonix) 40 mg IV QAM [facility] Last Admin: 09/07/17 12:35 Dose: 40 mg Admin: 09/06/17 09:10 Dose: 40 mg Admin: 09/05/17 11:29 Dose: 40 mg Admin: 09/04/17 09:20 Dose: Sodium Chloride (Saline Flush) 10 ml IV Q8 [facility] Last Admin: 09/07/17 15:43 Dose: Admin: 09/07/17 05:30 Dose: 10 ml Admin: 09/06/17 21:55 Dose: 10 ml Admin: 09/06/17 12:56 Dose: Not Given Admin: 09/06/17 09:13 Dose: 10 ml Admin: 09/06/17 06:01 Dose: Not Given Admin: 09/05/17 21:14 Dose: Not Given Admin: 09/05/17 14:40 Dose: Not Given Admin: 09/05/17 05:19 Dose: Not Given Admin: 09/04/17 21:32 Dose: Not Given Admin: 09/04/17 13:21 Dose: Not Given Admin: 09/04/17 04:42 Dose: 10 ml Admin: 09/03/17 22:30 Dose: 10 ml Admin: 09/03/17 17:34 Dose: Not Given Admin: 09/03/17 04:23 Dose: 10 ml Admin: 09/03/17 03:40 Dose: 10 ml Admin: 09/02/17 22:16 Dose: 10 ml Admin: 09/02/17 21:33 Dose: 10 ml Admin: 09/02/17 15:30 Dose: Not Given Admin: 09/02/17 06:01 Dose: 10 ml Admin: 09/01/17 23:38 Dose: 10 ml Shift Summary 09/07/17 00:38 Shift Summary by Saige Nguyen Patient has been sleeping most of the night. Receives ofirmev PRN for pain, but she has had no c/o abdominal pain or back pain tonight. She is up ad eulalio in her room. Ambulates ad eulalio in hallway. Started on full liquid diet yesterday and has been tolerating this very well, no c/o nausea. Still having loose stools, Dr. Tanner is aware. BP has been elevated, 150's-170/80-90's, Dr. Tanner is aware. Max temp 99.5, encouraged use of IS. IV in RFA SL between scheduled zosyn and flagyl. Will be started on PO abx in the AM. Possible d/c today. Boyfriend has slept in the room with her tonight. Calls appropriately. Initialized on 09/07/17 00:38 - END OF NOTE
== END 2017-09-07 18:31 | disposition home or self-care (01) ==
LOC: ED 16:50 → ICU 21:30 → MEDSUR 09-02 13:38
PROVIDERS: ADMIT Surgery; ATTEND Nurse Practitioner Family

== ENCOUNTER 2017-09-11 18:02 | Inpatient (IN) ==
[2017-09-12] MEDS ORDERED: ONDANSETRON 4 MG/2 ML VIAL IV PRN (09:00)
[2017-09-12] MEDS ORDERED: IMIPENEM/CILASTATIN SODIUM 250 MG in 0.9 % SODIUM CHLORIDE 100 ML IV SCH (09:00)
[2017-09-12] MEDS: ERTAPENEM 1 GM in 0.9 % SODIUM CHLORIDE 50 ML IV SCH (11:17)
--- NOTE | 2017-09-12 12:19 | History and Physical Report ---
DATE OF ADMISSION: 09/12/2017 CHIEF COMPLAINT: Diverticulitis with retroperitoneal abscess formation. HISTORY OF PRESENT ILLNESS: The patient is a 42-year-old woman who was recently admitted and discharged from the hospital after an episode of acute diverticulitis. Initial admission was on 09/01/2017. At the time of admission, she was noted to have diverticulitis with perforation into the retroperitoneum with some gas as evidence of such. Followup imaging in 48 hours showed improvement in the amount of gas in the retroperitoneum, and she was clinically stable and showing improvement and so was continued on IV antibiotics. She was kept n.p.o. until her white blood cell count was normal at which time she was started on clear liquid diet. Followup labs showed her white blood cell count to remain normal while taking liquids p.o. She was converted to p.o. medications and discharged home on 09/07/2017 with instructions to continue oral antibiotics of Augmentin and Flagyl with followup visit in clinic this week. The patient was also to maintain a liquid diet upon discharge. In clinic yesterday she reported that she had been tolerating a liquid diet and denied any symptoms of nausea or vomiting. She has not had any recurrent abdominal pain. However, she did note that she was noticing left flank discomfort in the area where she had pain initially on presentation at the beginning of her problems. CBC drawn yesterday showed a mild elevation in her white blood cell count of 12.5. Followup imaging was subsequently performed which I reviewed with the radiologist and has shown an integral development of an 8 x 11 cm thin-walled gas-containing fluid collection in the left anterior perinephric fat just medial to the descending colon and inferior to the pancreatic tail. The pancreas does not appear to be secondarily involved, and this area was suspected to be a developing abscess. I discussed findings on CT scan imaging with the patient in the radiology waiting room yesterday afternoon and recommended admission with IV antibiotics, bowel rest, and with plans for percutaneous drainage as this area did seem amenable to the radiologist for percutaneous drainage. The patient stated that she did not want to stay in the hospital yesterday but was willing to come back today for antibiotics and the procedure. She returned to the hospital this morning as planned. In our discussion this morning, she stated that she did not want to have the percutaneous drainage and would like to avoid this if at all possible. She requested if there were any other options because she does not wish to proceed with drainage at this time. This being the case, I explained to the patient my concerns regarding findings on imaging, development of a fluid collection suggestive of abscess and its proximity to the pancreas and the retroperitoneum. If she is not wanting to proceed with percutaneous drainage, at best we could put her back on IV antibiotics with repeat imaging in a couple of days to see if there has been any improvement. I did explain to her that if there is no improvement, this may progress to a larger abscess and could result in infection of the surrounding tissues which may result in greater illness. She verbalized understanding of this risk but would like to try IV antibiotics first before proceeding with more invasive therapy. PAST MEDICAL HISTORY: No history of diabetes mellitus, cardiac issues or kidney disease. She has had two prior surgeries for incisional hernia repairs with mesh in place. SOCIAL HISTORY: The patient denies tobacco use. Denies alcohol use. ALLERGIES: No known drug allergies. MEDICATIONS: Home medications include recent medications on discharge of metronidazole, Augmentin, and hydrocodone p.r.n. pain. REVIEW OF SYSTEMS: CONSTITUTIONAL: Denies fevers or chills. GI: Denies abdominal pain, nausea or vomiting. Does have left-sided flank pain as per HPI. : Denies dysuria or hematuria. CARDIOVASCULAR: Denies chest pain or pressure or palpitations. PULMONARY: Denies any new cough or production of sputum. PHYSICAL EXAMINATION: VITAL SIGNS: Temperature 98.6, pulse 71, respirations 16, blood pressure 141/87, O2 saturations are 97% on room air. GENERAL: The patient is an obese, well-developed woman who appears her stated age in no distress. HEENT: Head is normocephalic. Sclerae are white. CHEST: Breath sounds are clear to auscultation bilaterally. No rales or wheezes are heard. CARDIOVASCULAR: Regular rate and rhythm. ABDOMEN: Obese, soft, nontender to palpation. There is no tenderness on percussion of the costovertebral angles and no tenderness on palpation of the left flank which is improved from yesterday's clinic visit. EXTREMITIES: Scarring on the right lower extremity from previous injury and surgeries with skin grafting. DP pulses palpable. No edema. LABORATORY DATA: CBC drawn yesterday shows an elevated white blood cell count of 12.5. ASSESSMENT AND PLAN: Diverticulitis with retroperitoneal abscess. As stated above in HPI, recommendation of a percutaneous drainage has been discussed. However, the patient does not wish to proceed with this. She will be admitted and IV antibiotics instituted and kept n.p.o. If she clinically does well, then repeat CT scan in 48 hours will be done to be sure that this area is not enlarging to suggest need for more invasive intervention. Labs will be ordered today to include coagulation studies in anticipation of possible percutaneous drainage, as well as a lipase level given proximity of findings to the pancreas. The patient reports that she is a difficult stick for IV. This was also discussed with nursing staff who have helped in the care of the patient at a previous hospitalization. In anticipation of need for continued IV antibiotics for several days and the difficulty in establishing and maintaining IV access, PICC line is ordered. Risks of PICC line placement, including infection and DVT formation, were reviewed with the patient. She verbalized understanding of this risk and agrees to proceed. RC:annel Job ID: [id number] Doc ID: [id number] Selena Tanner MD
[2017-09-12] MEDS ORDERED: 0.9 % SODIUM CHLORIDE 10 ML SYRINGE IV PRN (13:22)
[2017-09-12 14:42] LABS: ALT/SGPT 16 U/l (0-40); Albumin 3.5 gm/dL (3.2-5.2); Albumin/Globulin Ratio 0.7 (1.0-2.3); Alkaline Phosphatase 45 U/L (39-117); Bilirubin,Direct < 0.2 mg/dL (0.0-0.3); Blood Urea Nitrogen 6 mg/dl (6-20); Gamma Glutamyl Transpeptidase 18 U/L (5-36); Lipase 41 U/L (7-60); Uric Acid 5.1 mg/dL (2.5-8.0)
--- NOTE | 2017-09-12 16:05 | XRay Report ---
CLINICAL INFORMATION: PICC PLACEMENT COMPARISON: 03/09/2016 FINDINGS: PICC line tip overlies the SVC atrial junction. The cardiomediastinal silhouette and pulmonary vessels are normal. Lungs are clear. No effusions IMPRESSION: PICC line tip in satisfactory position. Negative chest Interpreted and Authenticated by: Ariel Frazier 09/12/17
[2017-09-12 17:39] LABS: Mean Corpuscular HGB Conc 33.1 g/dL (31.0-36.0); Mean Corpuscular Hemoglobin 29.5 pg (26.0-34.0); Platelet Count 363 K/mcL (140-440); RBC 4.87 M/mcL (4.00-5.20); Red Cell Distribution Width 14.8 % (11.5-14.5)
[2017-09-12 17:40] LABS: Lymphocytes % 18 % (15-49); Monocytes % (Manual) 2 % (1-12); Platelet Estimate NORMAL (NORMAL); RBC Morphology NORMAL (NORMAL); Segmented Neutrophils % 80 % (38-78)
--- NOTE | 2017-09-12 17:53 | General Surgery Progress Note ---
Surgical - Auxillary Note - Subjective Patient Information: Note initiated : 09/12/17 at 5:49 pm Service Date, if different from initiated Date: [] Patient: Marija Casanova 42 y/o F admitted on 09/12/17 for Diverticulitis Abscess. Chief Complaint: [] Patient resting in bed. PICC line placed. Taking some ice chips. Reports no pain at this time. On exam non tender on palpation of abdomen and in left flank. Will keep on IV abx. Reviewed again with patient that even though she does not want percutaneous drainage of the abscess it may still be necessary. Plan CT in 48hrs to see if abscess responding to abx
[2017-09-12] MEDS: DEXTROSE 5%-1/2NS W/20MEQ KCL 1,000 ML IV SCH (18:04)
[2017-09-12] MEDS: 0.9 % SODIUM CHLORIDE 10 ML SYRINGE IV SCH ×2 (18:04→21:31)
[2017-09-12] MEDS: PIPERACILLIN SODIUM/TAZOBACTAM 3.375 GM in DEXTROSE 5% IN WATER 50 ML IV SCH (19:05)
[2017-09-13] MEDS: PIPERACILLIN SODIUM/TAZOBACTAM 3.375 GM in DEXTROSE 5% IN WATER 50 ML IV SCH ×4 (00:56→21:44)
[2017-09-13 06:48] LABS: ALT/SGPT 14 U/l (0-40); Albumin 3.1 gm/dL (3.2-5.2); Albumin/Globulin Ratio 0.6 (1.0-2.3); Alkaline Phosphatase 40 U/L (39-117); Bilirubin,Direct < 0.2 mg/dL (0.0-0.3); Blood Urea Nitrogen 6 mg/dl (6-20); Gamma Glutamyl Transpeptidase 15 U/L (5-36); Uric Acid 4.4 mg/dL (2.5-8.0)
[2017-09-13] MEDS: DEXTROSE 5%-1/2NS W/20MEQ KCL 1,000 ML IV SCH ×3 (07:23→19:24)
--- NOTE | 2017-09-13 07:45 | General Surgery Progress Note ---
Surgical - Auxillary Note - Subjective Patient Information: Note initiated : 09/13/17 at 7:42 am Service Date, if different from initiated Date: [] Patient: Marija Casanova 42 y/o F admitted on 09/12/17 for Diverticulitis Abscess. Chief Complaint: [] Patient resting in bed. States no pain in abdomen or back. Had a good night. Vital Signs Temp Pulse Resp BP Pulse Ox 97.6 F 55 L 16 140/77 97 09/13/17 07:12 09/13/17 04:00 09/13/17 07:12 09/13/17 07:12 09/13/17 07:12 Period Temp Pulse Resp BP Sys/Lopez Pulse Ox Last 24 Hr 97.5 F-98.8 F 55-71 16-18 123-141/69-89 95-97 Intake and Output 09/12/17 09/13/17 09/13/17 21:59 05:59 13:59 Intake Total 220 / 220 1400 / 1400 Output Total 525 / 525 325 / 325 Balance -305 / -305 1075 / 1075 Weight 233 lb 4.8 oz PE: No distress Chest: clear bilaterally CV: regular rate and rhythm ABD: soft, non tender, no guarding. No CVA tenderness to palpation or percussion CBC speciment from this morning clotted. Redrawing lab now. A/P: diverticulitis with retroperitoneal abscess Yesterday's WBCs up to 14. discussed with patient that if WBCs increased today will repeat CT today instead of tomorrow.
[2017-09-13 08:26] LABS: Basophils # (Auto) 0 K/mcL (0.0-0.3); Basophils % (Auto) 0.3 % (0.0-2.0); Eosinophils # (Auto) 0.2 K/mcL (0.0-0.7); Eosinophils % (Auto) 1.5 % (0.0-7.0); Granulocytes % (Auto) 66.8 % (38.0-78.0); Lymphocytes # (Auto) 2.8 K/mcL (1.5-4.8); Lymphocytes % (Auto) 25.3 % (15.5-49.0); Mean Cell Volume 88.4 fL (80.0-100.0); Mean Corpuscular HGB Conc 33.2 g/dL (31.0-36.0); Mean Corpuscular Hemoglobin 29.4 pg (26.0-34.0); Monocytes # (Auto) 0.7 K/mcL (0.1-0.9); Monocytes % (Auto) 6.1 % (1.0-12.0); Platelet Count 353 K/mcL (140-440); RBC 4.63 M/mcL (4.00-5.20)
[2017-09-13] MEDS: ERTAPENEM 1 GM in 0.9 % SODIUM CHLORIDE 50 ML IV SCH (11:26)
[2017-09-13] MEDS: 0.9 % SODIUM CHLORIDE 10 ML SYRINGE IV SCH ×2 (11:26→21:29)
--- NOTE | 2017-09-13 17:15 | General Surgery Progress Note ---
Surgical - Auxillary Note - Subjective Patient Information: Note initiated : 09/13/17 at 5:13 pm Service Date, if different from initiated Date: [] Patient: Marija Casanova 42 y/o F admitted on 09/12/17 for Diverticulitis Abscess. Chief Complaint: [] Patient reports a good day. NO complaints of abdominal pain or nausea. No flank pain. No chills. On exam abdomen is soft and non tender. No left flank tenderness. Will continue current therapy.
[2017-09-14] MEDS: DEXTROSE 5%-1/2NS W/20MEQ KCL 1,000 ML IV SCH ×4 (00:21→18:09)
[2017-09-14] MEDS: PIPERACILLIN SODIUM/TAZOBACTAM 3.375 GM in DEXTROSE 5% IN WATER 50 ML IV SCH ×2 (05:57→14:55)
[2017-09-14 06:27] LABS: Basophils # (Auto) 0 K/mcL (0.0-0.3); Basophils % (Auto) 0.5 % (0.0-2.0); Eosinophils # (Auto) 0.2 K/mcL (0.0-0.7); Eosinophils % (Auto) 1.9 % (0.0-7.0); Granulocytes % (Auto) 55.4 % (38.0-78.0); Lymphocytes # (Auto) 2.6 K/mcL (1.5-4.8); Lymphocytes % (Auto) 26.6 % (15.5-49.0); Mean Cell Volume 89.2 fL (80.0-100.0); Mean Corpuscular HGB Conc 32.7 g/dL (31.0-36.0); Mean Corpuscular Hemoglobin 29.2 pg (26.0-34.0); Monocytes # (Auto) 1.5 K/mcL (0.1-0.9); Monocytes % (Auto) 15.6 % (1.0-12.0); Platelet Count 304 K/mcL (140-440); RBC 4.47 M/mcL (4.00-5.20); Red Cell Distribution Width 14.3 % (11.5-14.5)
--- NOTE | 2017-09-14 07:28 | General Surgery Progress Note ---
Surgical - Auxillary Note - Subjective Patient Information: Note initiated : 09/14/17 at 7:27 am Service Date, if different from initiated Date: [] Patient: Marija Casanova 42 y/o F admitted on 09/12/17 for Diverticulitis Abscess. Chief Complaint: [] Patient resting in bed watching a movie this morning. Took sips of liquids last night. Denies nausea or emesis. Denies abdominal pain or flank pain. Afebrile. Denies chills. Vital Signs Temp Pulse Resp BP Pulse Ox 97.2 F 62 20 124/81 98 09/14/17 04:00 09/14/17 04:00 09/14/17 04:00 09/14/17 04:00 09/14/17 04:00 Period Temp Pulse Resp BP Sys/Lopez Pulse Ox Last 24 Hr 97.2 F-98.3 F 61-73 16-20 124-147/72-88 94-99 Intake and Output 09/13/17 09/14/17 09/14/17 21:59 05:59 13:59 Intake Total 1300 / 1300 230 / 230 1000 / 1000 Output Total 600 / 600 Balance 700 / 700 230 / 230 1000 / 1000 Weight 231 lb 12.8 oz PE: No distress Chest: clear bilaterally CV: regular rhythm ABD: soft and non tender. No flank or back tenderness to palpation or percussion. CBC 09/14/17 05:00 A/P: Diverticulitis with retroperitoneal abscess. Clinically improved with IV abx. WBCs normal. Discussed with radiologist and recommends as long as patient seems improved give one more day before repeat CT to allow more time to see if fluid collection is responding to abx. Will plan for CT tomorrow.
[2017-09-14] MEDS: ERTAPENEM 1 GM in 0.9 % SODIUM CHLORIDE 50 ML IV SCH (09:33)
[2017-09-14] MEDS: 0.9 % SODIUM CHLORIDE 10 ML SYRINGE IV SCH ×2 (09:33→20:49)
[2017-09-14] MEDS ORDERED: diphenhydrAMINE 50 MG/ML VIAL IV PRN (15:11)
[2017-09-14] MEDS ORDERED: HYDROCORTISONE CRM 1% TUBE 30GM TOPICAL PRN (15:18)
--- NOTE | 2017-09-14 15:24 | General Surgery Progress Note ---
Surgical - Auxillary Note - Subjective Patient Information: Note initiated : 09/14/17 at 3:18 pm Service Date, if different from initiated Date: [] Patient: Marija Casanova 42 y/o F admitted on 09/12/17 for Diverticulitis Abscess. Chief Complaint: [] Patient just out of shower. Reports she is feeling well regarding her stomach and back and tolerating clears. But having pruritis and hives. Says these occurred after her shower and opening window. Usually occurs when she is cold but doesn't feel cold now. On upper and lower extremities at elbows and medial thighs has erythema and macular rash with signs of scratching. No facial swelling. No breathing difficulty. Breath sounds clear bilaterally, no wheezing. Unsure if related to antibiotic but patient states she has an isolated episode on monday which she thought was related to cold exposure. By then, of antibiotics that she is currently on, would have been only exposed to pcn so will stop Zosyn.
--- NOTE | 2017-09-14 18:32 | General Surgery Progress Note ---
Surgical - Auxillary Note - Subjective Patient Information: Note initiated : 09/14/17 at 6:29 pm Service Date, if different from initiated Date: [] Patient: Marija Casanova 42 y/o F admitted on 09/12/17 for Diverticulitis Abscess. Chief Complaint: [] Patient resting in bed. Has had resolution of hives. She said they improved as soon as a warm pack was placed to the areas. She also, however, received benadryl nearly at the same time. No itching at this time and hives fully resolved. Chest clear bilaterally. No rales or wheezes. Abdomen soft and non tender and no flank pain or tenderness. Repeat CT in am.
[2017-09-15] MEDS: DEXTROSE 5%-1/2NS W/20MEQ KCL 1,000 ML IV SCH (05:46)
[2017-09-15 06:08] LABS: Basophils # (Auto) 0 K/mcL (0.0-0.3); Basophils % (Auto) 0.4 % (0.0-2.0); Eosinophils # (Auto) 0.2 K/mcL (0.0-0.7); Eosinophils % (Auto) 1.7 % (0.0-7.0); Lymphocytes # (Auto) 3.3 K/mcL (1.5-4.8); Lymphocytes % (Auto) 33.3 % (15.5-49.0); Mean Cell Volume 88.9 fL (80.0-100.0); Mean Corpuscular HGB Conc 32.9 g/dL (31.0-36.0); Mean Corpuscular Hemoglobin 29.3 pg (26.0-34.0); Monocytes # (Auto) 0.5 K/mcL (0.1-0.9); Monocytes % (Auto) 4.6 % (1.0-12.0); Platelet Count 332 K/mcL (140-440); RBC 4.39 M/mcL (4.00-5.20); Red Cell Distribution Width 14.2 % (11.5-14.5)
[2017-09-15 07:01] LABS: Blood Urea Nitrogen 4 mg/dl (6-20)
--- NOTE | 2017-09-15 08:48 | Cat Scan Report ---
CLINICAL INFORMATION: Diverticulitis in descending colon, complicated by perforation and extravasation of gas and colonic contents into the left upper quadrant retroperitoneum. COMPARISON: Abdominal CT from 09/01/2017 and 09/11/2017. TECHNIQUE: Following enteric contrast, 0.625 mm helical slices were obtained from the mid heart through the iliac crest. Following reconstructions, sagittal, coronal and axial reformations were processed. Exam was reviewed at bone, lung and soft tissue windows Eight minutes later repeat 0.625 mm helical slices were obtained through the kidneys.The exam was performed using radiation dose optimization techniques including, but not limited to, automated exposure control, adjustment of the mA and/or kV according to patient size and use of iterative reconstruction technique. FINDINGS: The lung bases are clear. There are no effusions. The visualized heart is normal. Images through the abdomen show the noncontrasted gallbladder, bile ducts, liver, pancreas, both adrenal glands, kidneys, spleen and aorta are normal in size, configuration and attenuation without focal lesion. Focal diverticulitis in the mid descending colon shows continued improvement with mild wall thickening and inflammation in the pericolonic fat. The amount of gas in the left upper quadrant retroperitoneum continues to diminish - particularly in the perisplenic and peripancreatic regions. There is a more discrete collection of gas and fluid in the anterior pararenal space, inferior to the pancreas, as previously seen. This collection has decreased from 11 x 5 cm on the study four days ago to 8.8 x 4 cm on today's exam. There is no definite capsule forming but still represents a discrete phlegmon and not a true abscess. Marked laxity in the right anterior abdominal wall with small hernia containing nonincarcerated short segment of small bowel seen as before IMPRESSION: Focal diverticulitis in the descending colon continues to improve. The volume of gas and fluid in the retroperitoneal left upper quadrant continues to decrease. There is a more discrete collection of fluid and gas in the anterior left pararenal space which has decreased from 11 cm to 8.[address] four days prior. This is still likely a phlegmon and not a true abscess. No other changes Interpreted and Authenticated by: Ariel Frazier 09/15/17
[2017-09-15] MEDS: ERTAPENEM 1 GM in 0.9 % SODIUM CHLORIDE 50 ML IV SCH (09:35)
[2017-09-15] MEDS: 0.9 % SODIUM CHLORIDE 10 ML SYRINGE IV SCH ×2 (09:50→09:51)
--- NOTE | 2017-09-15 10:31 | General Surgery Progress Note ---
Surgical - Auxillary Note - Subjective Patient Information: Note initiated : 09/15/17 at 10:15 am Service Date, if different from initiated Date: [] Patient: Marija Casanova 42 y/o F admitted on 09/12/17 for Diverticulitis Abscess. Chief Complaint: [] Patient resting in bed. Says she feels well. Has tolerated clears. No abdominal pain, nausea, emesis, or flank/back pain. No fevers or chills. No pain medication needs. No recurrence of hives or pruritis since yesterday afternoon. Receiving Invanz. CT done. Vital Signs Temp Pulse Resp BP Pulse Ox 97.4 F 66 16 140/80 93 09/15/17 06:50 09/15/17 06:50 09/15/17 06:50 09/15/17 06:50 09/15/17 06:50 Period Temp Pulse Resp BP Sys/Lopez Pulse Ox Last 24 Hr 97.1 F-98.9 F 56-66 16-18 130-148/62-82 93-97 Intake and Output 09/14/17 09/15/17 09/15/17 21:59 05:59 13:59 Intake Total 2200 / 2200 1250 / 1250 Output Total 1000 / 1000 450 / 450 700 / 700 Balance 1200 / 1200 800 / 800 -700 / -700 Weight 233 lb 6.4 oz PE: No distress Chest: clear, no rales or wheezes. CV: regular rhythm ABD: soft, non tender. non distended. No guarding or rebound. No flank or back tenderness. CBC and Chem 7 09/15/17 04:00 09/15/17 04:00 CT results reviewed with radiologist. Retroperitoneal findings diminished in size without a true capsule suggestive of improving phlegmon. No clear abscess to drain. A/P: Diverticulitis with phlegmon. Improving on abx and clinically stable. Discussed findings with patient. At this time seems to be responding to IV abx and staying only on clears. She is willing to continue with this course. Wants to avoid invasive therapy at this time and given clinical stability this seems reasonable. She also wants to get out of the hospital. She is in agreement to return for antibiotics daily. Will arrange for continued Invanz daily as outpatient and f/u in clinic next week with repeat CBC prior to clinic. Continue clear liquids with supplemental drinks of Boost Breeze or Ensure Clear 4X/day.
--- NOTE | 2017-09-15 14:15 | Discharge Summary ---
Providers - Providers Patient information: Note initiated : 09/15/17 at 1:54 pm Service Date, if different from initiated Date: [] Patient: Marija Casanova 42 y/o F admitted on 09/12/17 for Diverticulitis Abscess. Chief Complaint: [] Date of admission: 09/12/17 Discharge date: 09/15/17 Attending physician: Selena Tanner Hospitalization Hospital course: Patient was admitted on 09/12/17 with diagnosis of diverticular retroperitoneal abscess. PICC line was placed and she was started on IV abx and kept NPO. Leukocytosis improved with these measures and normalized for the remainder of her stay. She remained without pain, fever, or nausea. She was started on a clear liquid diet which she tolerated with no recurrence of symptoms or leukocytosis. Repeat CT was done on 09/15/17 which showed decrease in retroperitoneal inflammation and what appeared to be an organizing phlegmon but not considered to be a drainable abscess. Patient wanted to go home so because patient has been clinically stable arranged for continued with IV antibiotics as outpatient. She is to receive daily Invanz. She will f/u in clinic on Monday09/18/17 with a CBC to be drawn prior to that visit. She is to continue on a clear liquid diet for now and has been educated on this. She is to supplement with boost breeze 8oz 4X/day (or the Ensure equivalent) She is not to continue the Augmentin previously prescribed but will continue the Flagyl that was previously prescribed. Discharge diagnosis: diverticulitis with phlegmon Reason for admission: diverticulitis with abscess Exam Temp Pulse Resp BP Pulse Ox 97.8 F 70 16 128/86 98 09/15/17 13:29 09/15/17 13:29 09/15/17 13:29 09/15/17 13:29 09/15/17 13:29 Discharge Plan - Patient/Caregiver Discharge Instructions Activity: increase activity as tolerated Diet: Clear Liquid Additional Instructions: You are scheduled to start daily outpatient IV antibiotic on MondaySeptember 16 at 12:00 PM. On Monday you will come to the Med/Surg nurse's station for the weekend. Starting MondaySeptember 18 you will go to the Same Stay Specialty Unit (Day Surgery) until done with IV antibiotics. Continue eating/drinking clear liquid diet with supplemental Boost Breeze or Ensure Clear. Increase activity as tolerated. For any increase pain or nausea/vomiting, contact physician or return to the emergency room. Prescriptions: Ertapenem [Invanz] 1 gm IV Q24H 7 Days #1 vial Other Amb Orders: Outpatient PICC Care Location: Determined By Patient Complete Blood Count Time Frame: 09/18/17, Location: Determined By Patient - Follow up Plan Follow up with: Mara Cameron MD [Physician] - 09/18/17 11:00 am Disposition: Home, Self-Care Prognosis: Good Rehab Potential: Good I certify that the patient requires SNF services.: No Pending Studies Resuscitation Status Full Code Diet Clear Liquid Diet Start MonSep 15 1004 Shift Summary 09/15/17 05:27 Shift Summary by Ana Maria Webster Patient was watching movies online at start of shift. Slept by midnight. Denies any pain. Single-lumen PICC on Left arm slightly sluggish but draws blood. Up ad eulalio in room. Denies any pain this shift. Started NPO from midnight for upcoming CT in AM. VSS. Initialized on 09/15/17 05:27 - END OF NOTE
== END 2017-09-15 13:25 | disposition home or self-care (01) | DRG 392 ==
LOC: MEDSUR → OBSVTOIN 09-12 10:07 → MEDSUR 09-13 01:09
PROVIDERS: ADMIT Surgery; ATTEND Surgery